=== PATIENT | female | born 1995 ===

== ENCOUNTER 2022-03-16 22:05 | Emergency (ER) | payer MEDICAID ==
[~2022-03-16] VITALS: Ht 157.5 cm; Wt 85.0 kg
[2022-03-16 22:20] VITALS: BP 138/74
[2022-03-16] MEDS ORDERED: ONDANSETRON 4MG ODT PO STA (23:09)
[2022-03-16] MEDS ORDERED: HYDROCODONE/ACETAMINOPHEN 5/325MG TABLET PO STA (23:09)
== END 2022-03-17 01:00 | disposition left against medical advice (07) ==
LOC: ER 22:05
DX: R51.9 Headache, unspecified (principal); R11.2 Nausea with vomiting, unspecified
CPT/HCPCS: 99283